=== PATIENT | female | born 1990 | race Caucasian/White ===

== ENCOUNTER 2019-07-20 07:43 | Emergency (ER) | payer BC ==
[2019-07-20 07:52] VITALS: BP 169/96
[2019-07-20] MEDS ORDERED: IV NORMAL SALINE 1,000ML 1,000 ML IV ONE (08:00)
--- NOTE | 2019-07-20 08:01 | PHYS DOC ---
Past History Past Medical History: No Pertinent History Past Surgical History: No Surgical History Alcohol Use: None Drug Use: None Adult General Chief Complaint Chief Complaint: ABDOMINAL PAIN HPI HPI 29-year-old female presents with right upper quadrant and epigastric pain. Patient woke up at 5:00 this morning with pain that was 8 out of 10. She describes it as a throbbing sensation in the epigastric area. The last time she ate was 8:00 last night. The patient's pain is similar to this one other time 2 months ago. It lasted for hour then faded away. She doesn't know why it happene d. She doesn't know what made it better. She had one episode of vomiting today. She denies fever or chills. No significant history of GERD or other abdominal problems. She has had kidney stones in the past. She denies dysuria or increased urinary frequency. Review of Systems Review of Systems Constitutional: Denies fever or chills [] Eyes: Denies change in visual acuity, redness, or eye pain [] HENT: Denies nasal congestion or sore throat [] Respiratory: Denies cough or shortness of breath [] Cardiovascular: No additional information not addressed in HPI [] GI: Epigastric abdominal pain, nausea, vomiting. Denies bloody stools or diarrhea [] : Denies dysuria or hematuria [] Musculoskeletal: Denies back pain or joint pain [] Integument: Denies rash or skin lesions [] Neurologic: Denies headache, focal weakness or sensory changes [] Endocrine: Denies polyuria or polydipsia [] All other systems were reviewed and found to be within normal limits, except as documented in this note. Current Medications Current Medications Current Medications Medications (Trade) Dose Ordered Sig/[facility] Start Time Stop Time Status Last Admin Dose Admin Ondansetron HCl (Zofran) 4 mg 1X ONCE 07/20/19 08:15 07/20/19 08:16 Sodium Chloride 1,000 ml @ 1,000 mls/hr 1X ONCE 07/20/19 08:00 07/20/19 08:59 Allergies Allergies Allergies Coded Allergies Type Severity Reaction Last Updated Verified No Known Drug Allergies 07/20/19 No Physical Exam Physical Exam Constitutional: Well developed, well nourished, no acute distress, non-toxic appearance. [] HENT: Normocephalic, atraumatic, bilateral external ears normal, oropharynx moist, no oral exudates, nose normal. [] Eyes: PERRLA, EOMI, conjunctiva normal, no discharge. [] Neck: Normal range of motion, no tenderness, supple, no stridor. [] Cardiovascular:Heart rate regular rhythm, no murmur [] Lungs & Thorax: Bilateral breath sounds clear to auscultation [] Abdomen: Bowel sounds normal, soft, epigastric tenderness, no masses, no pulsatile masses. [] Skin: Warm, dry, no erythema, no rash. [] Back: No tenderness, no CVA tenderness. [] Extremities: No tenderness, no cyanosis, no clubbing, ROM intact, no edema. [] Neurologic: Alert and oriented X 3, normal motor function, normal sensory function, no focal deficits noted. [] Psychologic: Affect normal, judgement normal, mood normal. [] Current Patient Data Vital Signs Vital Signs Date Time Temp Pulse Resp B/P (MAP) Pulse Ox O2 Delivery O2 Flow Rate FiO2 07/20/19 07:52 98.7 60 18 97 Room Air EKG EKG [] Radiology/Procedures Radiology/Procedures [] Impressions: CT ABD PELV W/ IV CONTRST ONLY Indication: Right upper quadrant pain. Exposure: One or more of the following individualized dose reduction techniques were utilized for this examination: 1. Automated exposure control 2. Adjustment of the mA and/or kV according to patient size 3. Use of iterative reconstruction technique. Technique: Intravenous contrast was given. No oral contrast per request. Findings: No prior study for comparison. Liver unremarkable. Spleen unremarkable. Pancreas unremarkable. No adrenal mass. Kidneys demonstrate symmetric enhancement without dominant mass or or hydronephrosis. Several gallstones are identified. Gallbladder appears borderline distended and there may be borderline gallbladder wall thickening. Aorta is nonaneurysmal no significant lymph node enlargement. No significant small bowel distention. No evidence of acute colitis. The appendix appears normal. No significant ascites or evidence of pneumoperitoneum. Urinary bladder appears unremarkable. No evidence of pelvic mass. Vertebral body height is maintained. Transitional anatomy at the lumbosacral junction which is counted as a lumbarized S1 segment. Mild retrolisthesis of L5 on S1 and L4 on L5. No aggressive bone destruction. IMPRESSION: Cholelithiasis. Borderline gallbladder wall distention and wall thickening raising the question of cholecystitis. Electronically signed by: Haily Martin MD (07/20/2019 9:11 AM) [facility] DICTATED AND SIGNED BY: HAILY MARTIN MD DATE: 07/20/19910 CC: JUANITA QUINTANA DO; PCP,NO ~ Course & Med Decision Making Course & Med Decision Making Pertinent Labs and Imaging studies reviewed. (See chart for details) The patient's CT scan is significant for cholelithiasis. The patient also has borderline gallbladder wall thickening. The patient's labs are unremarkable. She does not have signs of acute infection. I have informed her that she needs to consider having her gallbladder removed sooner rather than later. It is not emergent and does not require admission. She is stable for discharge at this time. [] Dragon Disclaimer Dragon Disclaimer This electronic medical record was generated, in whole or in part, using a voice recognition dictation system. Departure Departure: Impression: Primary Impression: Cholelithiasis Additional Impression: Epigastric abdominal pain Disposition: HOME, SELF-CARE Condition: STABLE Referrals: PCP,ROCHELLE (PCP) Patient Instructions: Cholelithiasis, [id number] Problem Qualifiers Primary Impression: Cholelithiasis Cholelithiasis location: gallbladder Cholecystitis presence: without cholecystitis Biliary obstruction: without biliary obstruction Qualified Codes: K80.20 - Calculus of gallbladder without cholecystitis without obstruction JUANITA QUINTANA DO Jul 20, 2019 08:01
[2019-07-20 08:15] LABS: BASO # 0.1 x10^3/uL (0.0-0.2); BASO % 1 % (0-3); EOS # 0.4 x10^3/uL (0.0-0.7); EOS % 4 % (0-3); HEMOGLOBIN 14.8 g/dL (12.0-15.5); LYMPH # 2.9 x10^3/uL (1.0-4.8); LYMPH % 30 % (24-48); MEAN CORPUSCULAR HEMOGLOBIN 33 pg (25-35); MEAN CORPUSCULAR HGB CONC 34 g/dL (31-37); MEAN CORPUSCULAR VOLUME 97 fL (79-100); MONO # 0.8 x10^3/uL (0.0-1.1); MONO % 8 % (0-9); NEUT # 5.5 x10^3uL (1.8-7.7); NEUT % 57 % (31-73); PLATELET COUNT 341 x10^3/uL (140-400); RED BLOOD COUNT 4.54 x10^6/uL (3.50-5.40); RED CELL DISTRIBUTION WIDTH 13.4 % (11.5-14.5); WHITE BLOOD COUNT 9.7 x10^3/uL (4.0-11.0)
[2019-07-20] MEDS ORDERED: ONDANSETRON PF 4 MG/2 ML VIAL. IV ONE (08:15)
[2019-07-20 08:25] LABS: ALBUMIN 4.2 g/dL (3.4-5.0); ALBUMIN/GLOBULIN RATIO 1.1 (1.0-1.7); CALCIUM 9.7 mg/dL (8.5-10.1); POTASSIUM 4.6 mmol/L (3.5-5.1); TOTAL BILIRUBIN 0.1 mg/dL (0.2-1.0)
[2019-07-20] MEDS ORDERED: KETOROLAC 30 MG/ML VIAL. IV ONE (08:25)
[2019-07-20] MEDS ORDERED: IOHEXOL 300 MG/ML 75 ML VIAL. IV ONE (08:30)
--- NOTE | 2019-07-20 09:14 | RAD ---
CT ABD PELV W/ IV CONTRST ONLY Indication: Right upper quadrant pain. Exposure: One or more of the following individualized dose reduction techniques were utilized for this examination: 1. Automated exposure control 2. Adjustment of the mA and/or kV according to patient size 3. Use of iterative reconstruction technique. Technique: Intravenous contrast was given. No oral contrast per request. Findings: No prior study for comparison. Liver unremarkable. Spleen unremarkable. Pancreas unremarkable. No adrenal mass. Kidneys demonstrate symmetric enhancement without dominant mass or or hydronephrosis. Several gallstones are identified. Gallbladder appears borderline distended and there may be borderline gallbladder wall thickening. Aorta is nonaneurysmal no significant lymph node enlargement. No significant small bowel distention. No evidence of acute colitis. The appendix appears normal. No significant ascites or evidence of pneumoperitoneum. Urinary bladder appears unremarkable. No evidence of pelvic mass. Vertebral body height is maintained. Transitional anatomy at the lumbosacral junction which is counted as a lumbarized S1 segment. Mild retrolisthesis of L5 on S1 and L4 on L5. No aggressive bone destruction. IMPRESSION: Cholelithiasis. Borderline gallbladder wall distention and wall thickening raising the question of cholecystitis. Electronically signed by: Parviz Martin MD (07/20/2019 9:11 AM) [facility]
[2019-07-20 09:51] LABS: BACTERIA,URINE 0 /HPF (0-FEW); BILIRUBIN,URINE NEG (NEG); CLARITY,URINE HAZY; COLOR,URINE YELLOW; GLUCOSE,URINE NEG (NEG); NITRITE,URINE NEG (NEG); RBC,URINE RARE /HPF (0-2); SQUAMOUS EPITHELIAL CELL,UR OCC /LPF; UROBILINOGEN,URINE 0.2 mg/dL (0.2 mg/dL); WBC,URINE 0 /HPF (0-4)
== END 2019-07-20 09:40 | disposition home or self-care (01) ==
LOC: ER 07:43
DX: K80.20 Calculus of gallbladder without cholecystitis without obstruction (principal); R11.2 Nausea with vomiting, unspecified
CPT/HCPCS: 36415; 74177; 80053; 81001; 83690; 85025; 96361; 96374; 99285; J1885; J7030